=== PATIENT | female | born 1930 | race Caucasian/White ===

== ENCOUNTER → 2016-06-10 | Outpatient (CLI) | payer MEDICARE | LOC: LAB 14:20 | PROVIDERS: ATTEND Nurse Practitioner Family | DX: R19.04 Left lower quadrant abdominal swelling, mass and lump (principal) | CPT/HCPCS: 36415; 82378 ==

== ENCOUNTER → 2016-06-15 | Outpatient (CLI) | payer MEDICARE | LOC: LAB 10:32 | PROVIDERS: ATTEND Nurse Practitioner Family | DX: R63.4 Abnormal weight loss (principal) ==